=== PATIENT | male | born 1945 | race Caucasian/White ===

== ENCOUNTER 2024-10-08 09:26 | Emergency (ER) | payer MEDICARE, OTHER ==
[~2024-10-08] VITALS: Ht 170.2 cm; Wt 71.7 kg
[2024-10-08] MEDS ORDERED: FLUT16SP16 BNOSTRILS (10:46)
[2024-10-08 10:54] VITALS: BP 125/56; TEMP 98.4; O2SAT 98
== END 2024-10-08 11:24 | disposition home or self-care (01) ==
LOC: ER 09:30
DX: J06.9 Acute upper respiratory infection, unspecified (principal); N40.0 Benign prostatic hyperplasia without lower urinary tract symptoms